=== PATIENT | male | born 1975 | race Caucasian/White ===

== ENCOUNTER 2021-04-07 13:17 | Outpatient (RCR) | payer OTHER, SELFPAY | END 2021-05-28 08:00 | disposition home or self-care (01) | LOC: HO.WCC 13:17 | PROVIDERS: PCP Student in an Organized Health Care Education/Training Program; Visit Provider Physician Assistant | DX: L97.212 Non-pressure chronic ulcer of right calf with fat layer exposed (principal); F17.210 Nicotine dependence, cigarettes, uncomplicated; F11.20 Opioid dependence, uncomplicated | CPT/HCPCS: 11042 ==

== ENCOUNTER 2024-09-07 10:00 | Outpatient (REF) | payer OTHER, SELFPAY ==
[2024-09-07 14:27] LABS: MANUAL DIFF FLAG NO
[2024-09-07 14:34] LABS: Basophils Percent Auto 0.4 % (0-2); Eosinophils Absolute Auto 0.1 X10*3/uL (0.0-0.4); Eosinophils Percent Auto 2.8 % (0-4); Hematocrit 44.7 % (42.0-52.0); Hemoglobin 15.2 g/dl (14.0-18.0); Imm Gran Abs Auto 0.01 X10*3/uL (0.00-0.03); Imm Gran Pct Auto 0.2 % (0.0-0.4); Lymphocytes Absolute Auto 1.6 X10*3/uL (1.2-4.9); Lymphocytes Percent Auto 31.1 % (20-40); Mean Corpuscular Hemoglobin 29.6 pg (27.0-33.0); Mean Corpuscular Volume 87.1 fL (80.0-98.0); Monocytes Absolute Auto 0.4 X10*3/uL (0.1-1.2); Neutrophils Absolute Auto 2.9 x10*3/uL (2.0-8.3); Neutrophils Percent Auto 57.5 % (45-73); Platelet Count 204 X10*3/uL (160-400); Red Blood Count 5.13 X10*6/uL (4.60-5.80); Red Cell Distribution Width 12.3 % (11.0-16.0)
[2024-09-07 15:04] LABS: Prostate Specific Antigen Scr 0.47 ng/mL (<0.05-4.0)
[2024-09-07 15:16] LABS: Alanine Aminotransferase 177 U/L (0-40); Albumin Level 4.2 g/dL (3.5-5.0); Alkaline Phosphatase 108 U/L (39-117); Anion Gap 12 (12-20); Aspartate Amino Transferase 130 U/L (5-37); Bilirubin Direct 0.2 mg/dL (0.0-0.5); Bilirubin Total 0.4 mg/dL (0.0-1.0); Blood Urea Nitrogen 15 mg/dL (9-16); Calcium 9.6 mg/dL (8.4-10.2); Carbon Dioxide 27 mmol/L (22-29); Chloride 104 mmol/L (96-108); Cholesterol 124 mg/dL (<200); Estimated Glomerular Filt Rate > 60; Glucose Fasting 85 mg/dL (60-99); HDL Cholesterol 32 mg/dL (>40); LDL Cholesterol Calculated 54 mg/dL (<100); Potassium 4.1 mmol/L (3.3-5.1); Sodium 139 mmol/L (135-145); Total Protein 8.2 g/dL (6.5-8.0); Triglycerides 193 mg/dL (<150)
[2024-09-07 15:17] LABS: TSH reflex Free T4 3.11 uIU/mL (0.32-4.0)
[2024-09-07 16:09] LABS: CT PCR NOT DETECTED (Not Detect.); NG PCR NOT DETECTED (Not Detect.)
[2024-09-08 08:32] LABS: HBS Num1 11.36 mIU/mL (0-7.99); ~HepC Num1 16.61 S/CO (0.00-0.79); ~Hepatitis C Antibody Reactive (Nonreactive)
[2024-09-08 10:56] LABS: HBS Num2 11.19 mIU/mL (0-7.99); HBS Num3 11.09 mIU/mL (0-7.99); ~Hepatitis B Surface Antibody GRAYZONE (Nonreactive)
[2024-09-09 13:13] LABS: HCV Log PCR 6.17 Log IU/mL (NOT DETECTED); HepC Viral Load 1480000 IU/mL (NOT DETECTED)
== END 2024-09-07 10:01 | disposition home or self-care (01) ==
LOC: HO.CHCLDS 10:00
PROVIDERS: Visit Provider Pediatrics
DX: Z11.3 Encounter for screening for infections with a predominantly sexual mode of transmission (principal); E66.3 Overweight; M54.2 Cervicalgia; G89.29 Other chronic pain; Z12.5 Encounter for screening for malignant neoplasm of prostate
CPT/HCPCS: 36415; 80048; 80061; 80076; 84153; 84443; 85025; 86706; 86803; 87491; 87522; 87591

== ENCOUNTER → 2024-12-15 11:29 | Outpatient (BNV) | payer OTHER, SELFPAY | PROVIDERS: PCP Student in an Organized Health Care Education/Training Program; Visit Provider Radiology Diagnostic Radiology | DX: K76.0 Fatty (change of) liver, not elsewhere classified (principal); R16.0 Hepatomegaly, not elsewhere classified; K83.8 Other specified diseases of biliary tract | CPT/HCPCS: 76700 ==

== ENCOUNTER 2025-01-09 11:06 | Outpatient (REF) | payer OTHER, SELFPAY ==
--- OUTSIDE RECORDS SUMMARY | 2025-01-09 13:31 | XMS_ITS | Encounter Summary ---
Author Organization [employer] Address [address] [place] [address] Care Team Providers Care Banquet Pilot Name Role Phone Maribel Lomax MD Primary Care Provider [phone] Encounter Details Date Type Department Care Team (Late st Contact Info) Description 12/15/2024 Orders Only [facility] CH[facility] MED & PEDS [address] [place], [place] [phone] Maribel Lomax MD [address] [place] [address] Social History Tobacco Use Types Packs/Day Years Used Date Smoking Tobacco: Every Day Cigarettes 0.3 35.2 Started: 11/15/1989 Passive Smoke Exposure: Current Smokeless Tobacco: Never Alcohol Answer Date Recorded Frequency of Alcohol Consumption Not on file 09/07/2024 Average Number of Drinks Not on file 024 Frequency of Binge Drinking Not on file 08/16 Score 0 09/07/2024 Depression Answer Date Recorded Patient Health Questionnaire-9 Score 0 09/07/2024 Patient Health Questionnaire-9 Score 0 09/07/2024 Last PHQ-9: Questionnaire Data Not on file 1 Housing Stability Answer Date Recorded What is your housing situation today? I have maurice craig 09/07/[address] you li ve. Do you have problems with any of the following? None of the above 09/07/2024 Food Insecurity Answer Date Recorded Within the past 12 months, y ou worried that your food would run out before you got money to buy more: Never True 09/07/2024 Within the past 12 months,th e food you bought just didn't last and you didn't have enough money to get more: Never True Transportation Answer Date Recorded In the past 12 months, has l ack of transportation kept you from medical appts, meetings, work or from getting things needed for daily living? No 09/07/2024 Utilities Answer Date Recorded In the past 12 months, has t he electric, gas, oil or water company threatened to shut off services in your home? No 09/07/2024 Depression Answer Date Recorded Patient Health Questionnaire-2 Score 0 09/07/2024 Internet Access Answer Date Recorded Internet Access Q1 Yes 09/07/2024 Internet Access Q2 Not on file 09/07/2024 Sex and Gender Information Value Date Recorded Sex Assigned at Male 09/14/2022 10:18 AM EDT Legal Sex Male 10:18 AM EDT Gender Identity Male 09/14/2022 10:18 AM EDT Sexual Orientation Straight 09/14/2022 10 :18 AM EDT documented as of this encounter Plan of Treatment Not on file documented as of this encounter Procedures Procedure Name Priority Date/Time Associated Diagnosis Comments US ABDOMEN COMPLETE WITH ELASTOGRAPHY Routine 12/15/2024 11:55 AM EST documented in this encounter Results * US Abdomen Comp w elastography (12/15/2024 11:55 AM EST) Anatomical Region Laterality Modality Abdomen Ultrasound 12/15/2024 11:5 5 AM EST Narrative 12/15/2024 2:16 PM EST ? [facility] ?[address] ?[place] [address] ? Ultrasound Report ? Signed ? Patient: Kimberlee,Antoni ?MR#: [id number] ?? [id number] ? : 1975 ?Acct:[id number] ? Age/Sex: 49 / M ?ADM Date: /31/25 ? Loc: HO.US ? Attending Dr: Maribel Lomax MD ? Ordering Physician: Maribel Lomax MD ?? Date of Service: 12/15/24 ?? Procedure(s): US abdomen comp w elastography ?? Accession Number(s): [id number] ? cc: Maribel Lomax MD ? EXAMINATION: ??US ABDOMEN COMPLETE WITH LIVER ELASTOGRAPHY ? HISTORY: Hep C Fib 4 index 3.36 ? TECHNIQUE: Real-time grayscale ultrasound imaging of the abdomen was ?? performed and images were reviewed. ? COMPARISON: There are no prior studies for comparison. ? FINDINGS: ?? Liver: ??The liver is enlarged and demonstrates diffusely increased ?? echotexture, consistent with steatosis. ??No focal mass or intrahepatic ?? biliary ductal dilatation is identified. ??There is normal hepatopedal ?? flow in the portal vein. ? Ultrasound elastography of the liver was performed with 10 separate ?? measurements of the liver parenchyma with the patient in the supine ?? position. ??Measurements were obtained approximately 2 cm below ?? Dominique's capsule and perpendicular to the capsule. ??Images are of ?? satisfactory quality. ? The median shear wave velocity is 1.08 m/s. ?? The interquartile range/median (IQR/median) is 0.05. ? Gallbladder and biliary tree: The gallbladder is unremarkable, without ?? evidence of calculi, wall thickening, or pericholecystic fluid. ??There ?? is no sonographic Arnold sign. ??The common bile duct is dilated, ?? measuring 13 mm in diameter. ? Kidneys: ??The right kidney measures 10.5 cm in length. The left kidney ?? measures 10.1 cm in length. ??The kidneys are unremarkable, without ?? evidence of masses, hydronephrosis, or calculi. ? Pancreas: The pancreas is obscured by bowel gas. ? Spleen: The spleen is normal in size and contour, measuring 12.2 cm in ?? length. ? Abdominal aorta and inferior vena cava: The visualized portions of the ?? abdominal aorta and inferior vena cava are normal in caliber. ? There is no free fluid in the abdomen. ? US/US abdomen comp w elastography ?? IMPRESSION: ? 1. Hepatomegaly and hepatic steatosis. ? 2. Dilated common bile duct without evidence of intrahepatic biliary ?? ductal dilatation or choledocholithiasis. If there is clinical concern ?? for choledocholithiasis, MRCP could be performed. ? The median shear wave velocity is 1.08 m/s, corresponding to a median ?? liver stiffness of 3.49 kPa. ??The IQR/median value is 0.05. ??This is ?? indicative of a quality data set. ?? Findings are indicative of a normal elastography value with a low ?? likelihood of severe fibrosis or cirrhosis. ? REFERENCE: ?? Society of Radiologists in Ultrasound Liver Stiffness Thresholds (2019): ? LIVER STIFFNESS THRESHOLDS: ?? *Shear wave velocity less than 1.3 m/s (Liver Stiffness equal or less ?? than 5 kPa): ??High probability of being normal. ?? *Shear wave velocity less than 1.7 m/s (Liver Stiffness less than 9 ?? kPa): ??In the absence of other known clinical signs, rules out ?? compensated advanced chronic liver disease. ?? *Shear wave velocity between 1.7-2.1 m/s (Liver Stiffness 9-13 kPa): ? Suggestive of compensated advanced chronic liver disease but need ?? further test for confirmation. ?? *Shear wave velocity between 2.1-2.4 m/s (Liver Stiffness 13-17 kPa): ? Rules in compensated advanced chronic liver disease. ?? *Shear wave velocity ??greater than 2.4 m/s (Liver Stiffness over 17 ?? kPa): ??Suggestive of clinically significant portal hypertension. ? QUALITY OF DATA SET: ?? *IQR/Median value equal or less than 0.15 implies a quality data set. ?? *IQR/Median value over 0.15 implies a poor quality data set. ? SIGNIFICANT CHANGE FROM PRIOR EXAM: ?? Significant change if liver stiffness measurement is 10% or greater ?? from prior exam. ? OTHER CONSIDERATIONS: ?? The stage of liver fibrosis may be overestimated in the setting of ?? acute hepatitis, liver inflammation, elevated liver function tests, ?? hepatic vascular congestion, obstructive cholestasis, non-fasting ?? state, and infiltrative diseases such as amyloidosis and lymphoma. ??In ?? some patients with NAFLD, the liver stiffness thresholds for ?? compensated advanced chronic liver disease may be lower. ??In causes ?? other than viral hepatitis and NAFLD, liver stiffness thresholds are ?? not well established. ? Electronically signed by: ??Singh Tomlin MD ??12/15/2024 02:13 PM EST ?? RP ? Dictated By: ?Singh Tomlin MD ? Signed By: ?<Electronically signed by Singh Tomlin MD in OV> ?12/15/24 1413 ? DD/ 1155 ? TD/TT: 12/15/24 1222 ? Personnel Analyst: ? Procedure Note Donotuseinterpreter, Image - 12/15/2024 [place] [id number] Ultrasound Report Signed Patient: Mark Mohan#: [id number] 727 : 1975Acct:[id number] Age/Sex: 49 / MADM Date: 12/15/24 Loc: HO.US Attending Dr: Maribel Lomax MD Ordering Physician: Maribel Lomax MD Date of Service: 12/15/24 Procedure(s): US abdomen comp w elastography Accession Number(s): [id number] cc: Maribel Lomax MD EXAMINATION: US ABDOMEN COMPLETE WITH LIVER ELASTOGRAPHY HISTORY: Hep C Fib 4 index 3.36 TECHNIQUE: Real-time grayscale ultrasound imaging of the abdomen was performed and images were reviewed. COMPARISON: There are no prior studies for comparison. FINDINGS: Liver: The liver is enlarged and demonstrates diffusely increased echotexture, consistent with steatosis. No focal mass or intrahepatic biliary ductal dilatation is identified. There is normal hepatopedal flow in the portal vein. Ultrasound elastography of the liver was performed with 10 separate measurements of the liver parenchyma with the patient in the supine position. Measurements were obtained approximately 2 cm below Dominique's capsule and perpendicular to the capsule. Images are of satisfactory quality. The median shear wave velocity is 1.08 m/s. The interquartile range/median (IQR/median) is 0.05. Gallbladder and biliary tree: The gallbladder is unremarkable, without evidence of calculi, wall thickening, or pericholecystic fluid. There is no sonographic Arnold sign. The common bile duct is dilated, measuring 13 mm in diameter. Kidneys: The right kidney measures 10.5 cm in length. The left kidney measures 10.1 cm in length. The kidneys are unremarkable, without evidence of masses, hydronephrosis, or calculi. Pancreas: The pancreas is obscured by bowel gas. Spleen: The spleen is normal in size and contour, measuring 12.2 cm in length. Abdominal aorta and inferior vena cava: The visualized portions of the abdominal aorta and inferior vena cava are normal in caliber. There is no free fluid in the abdomen. US/US abdomen comp w elastography IMPRESSION: 1. Hepatomegaly and hepatic steatosis. 2. Dilated common bile duct without evidence of intrahepatic biliary ductal dilatation or choledocholithiasis. If there is clinical concern for choledocholithiasis, MRCP could be performed. The median shear wave velocity is 1.08 m/s, corresponding to a median liver stiffness of 3.49 kPa. The IQR/median value is 0.05. This is indicative of a quality data set. Findings are indicative of a normal elastography value with a low likelihood of severe fibrosis or cirrhosis. REFERENCE: Society of Radiologists in Ultrasound Liver Stiffness Thresholds (2019): LIVER STIFFNESS THRESHOLDS: *Shear wave velocity less than 1.3 m/s (Liver Stiffness equal or less than 5 kPa): High probability of being normal. *Shear wave velocity less than 1.7 m/s (Liver Stiffness less than 9 kPa): In the absence of other known clinical signs, rules out compensated advanced chronic liver disease. *Shear wave velocity between 1.7-2.1 m/s (Liver Stiffness 9-13 kPa): Suggestive of compensated advanced chronic liver disease but need further test for confirmation. *Shear wave velocity between 2.1-2.4 m/s (Liver Stiffness 13-17 kPa): Rules in compensated advanced chronic liver disease. *Shear wave velocity greater than 2.4 m/s (Liver Stiffness over 17 kPa): Suggestive of clinically significant portal hypertension. QUALITY OF DATA SET: *IQR/Median value equal or less than 0.15 implies a quality data set. *IQR/Median value over 0.15 implies a poor quality data set. SIGNIFICANT CHANGE FROM PRIOR EXAM: Significant change if liver stiffness measurement is 10% or greater from prior exam. OTHER CONSIDERATIONS: The stage of liver fibrosis may be overestimated in the setting of acute hepatitis, liver inflammation, elevated liver function tests, hepatic vascular congestion, obstructive cholestasis, non-fasting state, and infiltrative diseases such as amyloidosis and lymphoma. In some patients with NAFLD, the liver stiffness thresholds for compensated advanced chronic liver disease may be lower. In causes other than viral hepatitis and NAFLD, liver stiffness thresholds are not well established. Electronically signed by: Singh Tomlin MD 12/15/2024 02:13 PM EST RP Dictated By: Singh Tomlin MD Signed By: <Electronically signed by Singh Tomlin MD in OV> 12/15/24 1413 DD/ 1155 TD/TT: 12/15/24 1222 Personnel Analyst: us Maribel Lomax MD [facility] Final Result documented in this encounter Visit Diagnoses Not on filedocumented in this encounter Additional Health Concerns Assessment Noted Time PHQ-9 Depression Total Score: 0 09/07/20 9:32 AM EDT documented as of this encounter Care Teams Banquet Pilot Relationship Specialty Start Date End Date Maribel Lomax MD [address] [place] [id number] PCP - General Family Medicine 08/22/13 documented as of this encounter
--- OUTSIDE RECORDS SUMMARY | 2025-01-09 13:31 | XMS_ITS | Encounter Summary ---
Author Organization [email or web address] Address [address] [facility] 7t [place] [address] Care Team Providers Care Clinical Project Coordinator Name Role Phone Maribel Lomax MD Primary Care Provider [phone] Reason for Visit * Reason Onset Date Comments Results 12/25/2024 Encounter Details Date Type Department Care Team ([facility] Contact Info) Description 12/25/2024 Telephone [facility] MEDICINE [address], [place] [phone] Lacey Stevens RN [address] [place] [address] Results Social History Tobacco Use Types Packs/Day Years [...] AM EDT documented as of this encounter Miscellaneous Notes * Telephone Encounter - Radha Prajapati MD - 01/04/2025 10:36 AM EST Okay to treat here. Needs bloodwork done. Thank you. * Telephone Encounter - Lacey Stevens RN - 12/25/2024 1:34 PM EST Please review Abd. US report and advise if pt should be tx for hep C via GI or here with you. Thankyou documented in this encounter Plan of Treatment Not on file documented as of this encounter Visit Diagnoses Not on filedocumented in this encounter Additional Health Concerns Assessment Noted Time PHQ-9 Depression Total Score: 0 09/07/20 9:32 AM EDT documented as of this encounter Care Teams Clinical Project Coordinator Relationship Specialty Start Date End Date Maribel Lomax MD [address] [place] [address] PCP - General Family Medicine 08/22/13 documented as of this encounter
--- OUTSIDE RECORDS SUMMARY | 2025-01-09 13:31 | XMS_ITS | Encounter Summary ---
Author Organization [employer] Address [address] [facility] 7[address] [place] [address] Care Team Providers Care Safety Representative Name Role Phone Maribel Lomax MD Primary Care Provider [phone] Encounter Details Date Type Department Care Team (Late st Contact Info) Description 01/04/2025 Telephone [facility] MEDICINE [address] [place], [place] [phone] Lacey Stevens, RN [address] [place] [address] Social History Tobacco Use Types Packs/Day Years [...] encounter Miscellaneous Notes * Telephone Encounter - Lacey Stevens RN - 01/04/2025 10:39 AM EST RN called pt to confirm Hep C tx here, pt agrees and will get labs done tomorrow. Once they are done he will come in person to be seen and start the HEP C TX process. Pt does c/o left side abdominal pain on palpation that has been there, will come in if pain worsens sooner than hep c tx. Pt denies any N/V/D, and is eating well. Once labs tom beltran RN will schedule appt with . documented in this encounter Plan of Treatment Not on file documented as of this encounter Visit Diagnoses Not on filedocumented in this encounter Additional Health Concerns Assessment Noted Time PHQ-9 Depression Total Score: 0 09/07/20 9:32 AM EDT documented as of this encounter Care Teams Safety Representative Relationship Specialty Start Date End Date Maribel Lomax MD [address] [place] [id number] PCP - General Family Medicine 08/22/13 documented as of this encounter
--- OUTSIDE RECORDS SUMMARY | 2025-01-09 13:31 | XMS_ITS | Clinical Summary ---
Author Organization [employer] Address [address] [facility] 7t [place] [address] Care Team Providers Care Estimator And Drafter Name Role Phone Maribel Lomax MD Primary Care Provider [phone] Allergies Active Allergy Reactions Criticality Noted Date Comments Aspirin Anaphylaxis High 12/21/2013 Codeine Rash Low 12/21/2013 Medications * This document contains information received from the source organization and may not represent a complete record from that organization. nicotine polacrilex (Nicotine Mini) 4 MG lozenge Dissolve 1 lozenge (4 mg) in the mouth every 2 (two) hours if needed for smoking cessation. 100 lozenge 4 Active gabapentin (Neurontin) 300 MG capsule TAKE 1 CAPSULE BY MOUTH AT BEDTIME 30 capsule 1 5 Active gabapentin (Neurontin) 300 MG capsule Take 1 capsule (300 mg) by mouth at bedtime. 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 Chronic neck pain 10/21/2015 Encounters Date Type Department Care Team Description 01/04/2025 Telephone [facility] MEDICINE [address] [place] [address] Lacey Stevens, RN 12/25/2024 Telephone [facility] [address] [place] [address] Lacey Stevens, RN Results 12/20/2024 Orders Only [facility] CHC MED & PEDS [address] [place], [place] [phone] Maribel Lomax MD Choledocholithiasis (Primary Dx) 12/19/2024 Telephone [facility] MED & PEDS [address] [place] [address] Kennedi Sheridan, RN Results 12/15/2024 Orders Only [facility] MED & PEDS [address] [place], [place] [phone] Maribel Lomax MD 12/09/2024 Refill [facility] CH[facility] MED & PEDS [address] [place], [place] [phone] Zhanna Valerio MD 11/24/2024 Telephone [facility] MED[facility] [address] [place] [phone] Cailin Stoner [place] Hep C Management 11/23/[address] [address] Lacey Stevens, party bus driver Results 11/21/[address] [address] Lacey Stevens, SOREN 11/20/[address] [address] Lacey Stevens, SOREN 11/02/[address] [address] Grecia Tejeda, SOREN Hep C Management 10/18/[address] [address] Jordana Washington, SOREN Error (VOID this visit) from Last 3 Months Immunizations Name Administration Dates Next Due Td (adult), 5 Lf tetanus tox oid, preservative free, adsorbed 05/19/2017 Tdap 12/02/2012 Social History Tobacco Use Types Packs/Day Years Used Date Smoking Tobacco: Every Day Cigarettes 0.3 35.2 Started: 11/15/1989 Passive Smoke Exposure: Current Smokeless Tobacco: Never Tobacco Cessation:Ready to Q uit: Not Asked; Counseling Given: Not Answered Alcohol Answer Date Recorded Frequency of Alcohol [...] Orientation Straight 09/14/2022 10 :18 AM EDT Last Filed Vital Signs Vital Sign Reading Time Taken Comments Blood Pressure 135/81 09/07/2024 9:29 AM EDT Pulse 64 09/07/2024 9:29 AM EDT Temperature 36.2 ??C (97.2 ??F) 09/07/2024 9:29 AM ED T Respiratory Rate 20 09/07/2024 9:29 AM EDT Oxygen Saturation 95% 09/07/2024 9:29 AM EDT Inhaled Oxygen Concentration - - Weight 88.9 kg (196 lb) 09/07/2024 9:29 AM EDT Height 169.5 cm (5' 6.75 ) 09/07/2024 9:29 AM ED T Body Mass Index 30.93 09/07/2024 9:29 AM EDT Plan of Treatment Health Maintenance Due Date Last Done Comments CT Colonography 1975 Colonoscopy 1975 Colorectal Cancer Screening 1975 FIT DNA/Cologuard 1975 FIT 1975 FOBT 1975 HIV Screening 1975 Sigmoidoscopy 1975 Family Planning (PISQ) 1988 Hepatitis A Vaccines (1 of 2 - Risk 2-dose series) 1992 Hepatitis B Vaccines (1 of 3 - 19+ 3-dose series) 1992 Pneumococcal Vaccine: 50+ Years (1 of 2 - PCV) 1992 Zoster Vaccines (1 of 2) 2023 COVID-19 Vaccine (2023-2 5 season) 2024 Influenza Vaccine (#1) 2024 Alcohol/Substance Use Screening 09/07/2025 09/07/2024 Depression Screening 09/07/2025 09/07/2024, 09/07/2024 SDOH Screening 09/07/2025 09/07/2024 Tobacco Screening 09/07/2025 09/07/2024 DTaP/Tdap/Td Vaccines (3 - T d or Tdap) 05/19/2027 05/19/2017, 12/02/2012 Lipid Panel 09/07/2029 09/07/2024 RSV Patients and Patients Aged 60 years or older (1 - 1-dose 75+ series) 2048 HIB Vaccines Aged Out No longer eligi ble based on patient's age to complete this topic HPV Vaccines Aged Out No longer eligi ble based on patient's age to complete this topic IPV Vaccines Aged Out No longer eligi ble based on patient's age to complete this topic Meningococcal Vaccine Aged Out No nas beth eligible based on patient's age to complete this topic RSV under 20 months Aged Out No longe r eligible based on patient's age to complete this topic Rotavirus Vaccines Aged Out No longer eligible based on patient's age to complete this topic Procedures Procedure Name Priority Date/Time Associated Diagnosis Comments US ABDOMEN COMPLETE WITH ELASTOGRAPHY Routine 12/15/2024 11:55 AM EST LIPID PANEL, STANDARD Routine 09/07/2024 10:02 AM EDT Routine screening for STI (sexually transmitted infection) Overweight Chronic neck pain from Last 3 Months or Most Recently Relevant to Health Maintenance Results * US Abdomen Comp w elastography (12/15/2024 11:55 AM EST) Anatomical Region Laterality Modality Abdomen Ultrasound 12/15/2024 11:5 5 AM EST Narrative 12/15/2024 2:16 PM EST ? [facility] ?[address] ?[place] [address] ? Ultrasound Report ? Signed ? Patient: Kimberlee,Antoni ?MR#: [id number] ?? [id number] ? : 1975 ?Acct:[id number] ? Age/Sex: 49 / M ?ADM Date: 12/15/24 ? Loc: HO.US ? Attending Dr: Maribel Lomax MD ? Ordering Physician: Maribel Lomax MD ?? Date of Service: 12/15/24 ?? Procedure(s): US abdomen comp w elastography ?? Accession Number(s): [id number] ? cc: Maribel Lomax MD ? EXAMINATION: [...] DD/ 1155 ? TD/TT: 12/15/24 1222 ? Thread Machine Operator: ? Procedure Note [place], Image - 12/15/[address] [address] Ultrasound Report Signed Patient: Mark Mohan#: [id number] 727 : 1975Acct:[id number] Age/Sex: 49 / MADM Date: 12/15/24 Loc: HO.US Attending Dr: Maribel Lomax MD Ordering Physician: Maribel Lomax MD Date of Service: 12/15/24 Procedure(s): US abdomen comp w elastography Accession Number(s): [id number] cc: Maribel Lomax MD EXAMINATION: US ABDOMEN [...] of Radiologists in Ultrasound Liver Stiffness Thresholds (2020): LIVER STIFFNESS THRESHOLDS: *Shear wave velocity less [...] by: Singh Tomlin MD 12/15/2024 02:13 PM [facility] [place] Dictated By: Singh Tomlin MD Signed By: <Electronically signed by Singh Tomlin MD in OV> 12/15/24 1413 DD/ 1155 TD/TT: 12/15/24 1222 Thread Machine Operator: us Maribel Lomax MD [facility] [place] Final Result * (ABNORMAL) Lipid Panel, Standard (09/07/2024 10:02 AM EDT) Triglycerides 193(H) <150 mg/dL [facility] Comment:Desirable Triglyceri de: less than 150 mg/dLBorderline High Triglyceride 150-199 mg/dLHigh Triglyceride: 200-499 mg/dLVery High Triglyceride: greater than or equal to 5OO mg/dL Cholesterol 124 <200 mg/dL [facility] Comment:Desirable Cholestero l: less than 200 mg/dLBorderline High Cholesterol: 200-239 mg/dLHigh Cholesterol: greater than 239 mg/dL LDL Cholesterol Calculated 54 <100 mg/dL [facility] Comment:Desirable LDL: less than 100 mg/dLNear Optimal/Above Optimal LDL: 110- 129 mg/dLBorderline High LDL: 130-159 mg/dLHigh LDL: 160-189 mg/dLVery High LDL: greater than or equal to 190 mg/dL HDL Cholesterol 32(L) >40 mg/dL [facility] Comment:Desirable HDL: great er than 40 mg/dL Note: This HDL assay may give artificially low results in patients with liver disease. Blood Venous blood specimen / Unknown 09/07/2024 10:02 AM EDT 09/07/2024 2:21 PM EDT us Zhanna Valerio MD LAB BLOOD ORDERABLES Final Re sult [facility] [address] [place] [address] [phone] from Last 3 Months or Most Recently Relevant to Health Maintenance [place] [address] [place] [address] [address] [employer] Care Teams Estimator And Drafter Relationship Specialty Start Date End Date Maribel Lomax MD [address] [place] [phone] PCP - General Family Medicine 08/22/13
--- OUTSIDE RECORDS SUMMARY | 2025-01-09 13:31 | XMS_ITS | Encounter Summary ---
Author Organization [employer] Address [address] [facility] 7t [place] [address] Care Team Providers Care Electrical Technician Instructor Name Role Phone Maribel Lomax MD Primary Care Provider [phone] Reason for Visit * Reason Comments Med Refill Encounter Details Date Type Department Care Team ([facility] Contact Info) Description 12/09/2024 Refill [facility] MED & PEDS [address] [place], [place] [phone] Zhanna Valerio MD [address] [place] [address] Social History Tobacco Use Types Packs/Day Years [...] documented as of this encounter Care Teams Electrical Technician Instructor Relationship Specialty Start Date End Date Maribel Lomax MD [address] [place] [phone] PCP - General Family Medicine 08/22/13 documented as of this encounter
--- OUTSIDE RECORDS SUMMARY | 2025-01-09 13:31 | XMS_ITS | Encounter Summary ---
Author Organization [employer] Address [address] [facility] [address] 7[address] [place] [address] Care Team Providers Care Mat Inspector Name Role Phone Maribel Lomax MD Primary Care Provider [phone] Reason for Visit * Reason Onset Date Comments Results 12/19/2024 Encounter Details Date Type Department Care Team ([facility] Contact Info) Description 12/19/2024 Telephone C [facility] MED [facility] PEDS [address] [place] [address] Kennedi Sheridan RN Results Social History Tobacco Use Types Packs/Day [...] encounter Miscellaneous Notes * Telephone Encounter - Kennedi Sheridan RN - 12/19/2024 9:53 AM EST TC placed to pt to inform and advise of results from US Abdomen Comp w elastography. Pt told of therecommendation for a MRCP for further testing and evaluation and the GI consult placed by Dr. Lomax. Pt agreeable to this information and stated understanding. ----- Message from Maribel Lomax MD sent at 12/16/2024 7:24 PM EST ----- Will order GI consult STAT Pt needs MRCP documented in this encounter Plan of Treatment Not on file documented as of this encounter Visit Diagnoses Not on filedocumented in this encounter Additional Health Concerns Assessment Noted Time PHQ-9 Depression Total Score: 0 09/07/20 9:32 AM EDT documented as of this encounter Care Teams Mat Inspector Relationship Specialty Start Date End Date Maribel Lomax MD [address] [place] [phone] PCP - General Family Medicine 08/22/13 documented as of this encounter
--- OUTSIDE RECORDS SUMMARY | 2025-01-09 13:31 | XMS_ITS | Encounter Summary ---
Author Organization [employer] Address [address] [facility] 7t [place] [address] Care Team Providers Care Medical Affairs Manager Name Role Phone Maribel Lomax MD Primary Care Provider [phone] Reason for Referral * Consultation (STAT) - Authorized Specialty Diagnoses / Procedures Referred By Amrit t Referred To Contact Gastroenterology Diagnoses Choledocholithiasis Maribel Lomax MD [address] [place] [address] Phone: tel: fax: [facility] [address] [facility] 3rd [address] [place], [place] Phone: tel: fax: Referral ID Status Reason Start Date Expiration Date Visits Requested Visits Authorized [id number] Authorized Specialty Services Required 12/20/2024 12/20/2025 1 1 Encounter Details Date Type Department Care Team (Latest Contact Info) Description 12/20/2024 Orders Only [facility] CHC MED & PEDS [address] [place] [address] Maribel Lomax MD [address] [place] [address] Choledocholithiasis (Primary Dx) Social History Tobacco Use Types Packs/Day Years [...] as of this encounter Plan of Treatment Scheduled Referrals Name Type Priority Associated Diagnoses Order Schedule Referral to Gastroenterology Outpatient Referral STAT Choledocholithiasi s Expected: 12/20/2024 (Approximate), Expires: 12/20/2025 documented as of this encounter Visit Diagnoses Diagnosis Choledocholithiasis- Primary Calculus of bile duct without mention of cholecystitis or obstruction documented in this encounter Additional Health Concerns Assessment Noted Time PHQ-9 Depression Total Score: 0 09/07/20 9:32 AM EDT documented as of this encounter Care Teams Medical Affairs Manager Relationship Specialty Start Date End Date Maribel Lomax MD [address] [place] [address] PCP - General Family Medicine 08/22/13 documented as of this encounter
[2025-01-09 14:21] LABS: MANUAL DIFF FLAG NO
[2025-01-09 14:29] LABS: Basophils Percent Auto 0.4 % (0-2); Eosinophils Absolute Auto 0.2 X10*3/uL (0.0-0.4); Eosinophils Percent Auto 3.1 % (0-4); Hematocrit 40.2 % (42.0-52.0); Hemoglobin 13.8 g/dl (14.0-18.0); Imm Gran Abs Auto 0.01 X10*3/uL (0.00-0.03); Imm Gran Pct Auto 0.2 % (0.0-0.4); Lymphocytes Absolute Auto 1.6 X10*3/uL (1.2-4.9); Mean Corpuscular HGB Conc 34.3 g/dl (31.0-36.0); Mean Corpuscular Hemoglobin 29.7 pg (27.0-33.0); Mean Corpuscular Volume 86.5 fL (80.0-98.0); Mean Platelet Volume 10.4 fL (9.4-12.4); Monocytes Absolute Auto 0.4 X10*3/uL (0.1-1.2); Monocytes Percent Auto 7.5 % (2-11); Neutrophils Absolute Auto 2.6 x10*3/uL (2.0-8.3); Neutrophils Percent Auto 54.8 % (45-73); Platelet Count 198 X10*3/uL (160-400); Red Blood Count 4.65 X10*6/uL (4.60-5.80); Red Cell Distribution Width 12.1 % (11.0-16.0); White Blood Count 4.8 X10*3/uL (4.8-10.8)
[2025-01-09 14:30] LABS: INTERNATIONAL NORM RATIO 0.9 (0.9-1.1); Prothrombin Time 10.4 SEC (10.9-12.4)
[2025-01-09 14:35] LABS: Estimated Glomerular Filt Rate > 60
[2025-01-10 08:49] LABS: HBS Num1 15.49 mIU/mL (0-7.99); HBc Num1 0.15 S/CO (0.00-0.79); HBsAGNum1 0.38 S/CO (0.00-0.99); HIV AB/AG Nonreactive (Nonreactive); HIV Num 1 0.05 S/CO (0.00-0.99); Hepatitis B Core Antibody Nonreactive (Nonreactive); Hepatitis B Surface Antigen Negative (Negative); ~Hepatitis B Surface Antibody REACTIVE (Nonreactive)
[2025-01-10 09:05] LABS: Hepatitis A Antibody IgG Nonreactive (Nonreactive); ~Hepatitis A Antibody IgG 0.67 S/CO (0.00-0.99)
[2025-01-13 17:33] LABS: Hepatitis C Genotype 1a
== END 2025-01-09 11:07 | disposition home or self-care (01) ==
LOC: HO.CHCLDS 11:06
PROVIDERS: Visit Provider Student in an Organized Health Care Education/Training Program
DX: B18.2 Chronic viral hepatitis C (principal); Z11.59 Encounter for screening for other viral diseases; Z72.89 Other problems related to lifestyle
CPT/HCPCS: 36415; 82565; 85025; 85610; 86704; 86706; 86708; 87340; 87389; 87902

== ENCOUNTER 2025-02-19 12:34 | Outpatient (REF) | payer OTHER, SELFPAY ==
--- OUTSIDE RECORDS SUMMARY | 2025-02-19 14:51 | XMS_ITS | Clinical Summary ---
Author Organization [employer] Address [address] [facility] 7t [place] [address] Care Team Providers Care Customer Marketing Manager Name Role Phone Maribel Lomax MD Primary Care Provider [phone] Allergies Active Allergy Reactions Criticality Noted Date Comments Aspirin Anaphylaxis High 12/21/2013 Codeine Rash Low 12/21/2013 Medications * This document contains information received from the source organization and may not represent a complete record from that organization. gabapentin (Neurontin) 300 MG capsule TAKE 1 CAPSULE BY MOUTH AT BEDTIME 30 capsule 1 12/13/19 25 Active albuterol 108 (90 Base) MCG/ACT inhaler Inhale 2 puffs every 4 (four) hours if needed. 08/08/20 24 Active methadone (Dolophine) 10 MG/5ML solution Take 35 mg by mouth Once per day. 08/17/20 22 Active sofosbuvir-walt patasvir (Epclusa) 400-100 MG tablet Take 1 tablet by mouth Once per day. 28 tablet 2 01/23/20 25 025 Active nicotine polacrilex (Nicotine Mini) 4 MG lozenge Dissolve 1 lozenge (4 mg) in the mouth every 2 (two) hours if needed for smoking cessation. 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 Chronic neck pain 10/21/2015 Encounters Date Type Department Care Team Description 02/13/2025 Telephone [facility] [address] [place] [address] Maribel Lomax MD Referral 02/05/2025 Orders Only [facility] [address] [place] [phone] Lacey Stevens, SOREN Hep C w/o coma, chronic (CMS/HCC) 01/29/[address] [address] Lacey Stevens, SOREN 01/22/2025 3:30 PM EDT Office Visit [address] [address] Radha Prajapati MD Chronic hepatitis C without hepatic coma (CMS/HCC) (Primary Dx); Encounter for immunization 01/22/2025 Travel 01/18/2025 1:00 PM EST Telemedicine [address] [address] Lacey Stevens, SOREN Hep C w/o coma, chronic (CMS/HCC) [B18.2] 01/18/[address] [address] Lacey Stevens RN 01/18/2025 Travel 01/17/[address] [address] Lacey Stevens, SOREN 01/09/2025 Orders Only [facility] MED & PEDS [address] [place] [address] Maribel Lomax MD 01/04/[address] [address] Lacey Stevens, SOREN 12/25/[address] [address] Lacey Stevens, SOREN Results 12/20/2024 Orders Only [facility] MED & PEDS [address] [place] [address] Maribel Lomax MD Choledocholithiasis (Primary Dx) 12/19/2024 Telephone [facility] MED & PEDS [address] [place] [address] Kennedi Sheridan, SOREN Results 12/15/2024 Orders Only [facility] CH[facility] MED & PEDS [address] [place] [address] Maribel Lomax MD 12/09/2024 Refill [facility] MED & PEDS [address] [facility] [place], [place] [phone] Zhanna Valerio MD 11/24/2024 Telephone [facility] [address] [place], [place] [phone] Cailin Stoner [place] Hep C Management 11/23/2024 Telephone [facility] [address] [place], [place] [phone] Lacey Stevens, geothermal powerplant supervisor Results 11/21/2024 Telephone [facility] [address] [place], [place] [phone] Lacey Stevens, SOREN from Last 3 Months Immunizations Name Administration Dates Next Due Hep A, Adult 01/22/2025 Td (adult), 5 Lf tetanus tox oid, preservative free, adsorbed 05/19/2017 Tdap 12/02/2012 Social History Tobacco Use Types Packs/Day Years Used Date Smoking Tobacco: Former Cigarettes 0.3 35.3 S tarted: 11/15/1989 Passive Smoke Exposure: Current Smokeless Tobacco: Never Tobacco Cessation:Counseling Given: Not Answered Depression Answer Date Recorded Patient Health Questionnaire-9 Score 0 09/07/2024 Patient Health Questionnaire-9 Score 0 09/07/2024 Last PHQ-9: Questionnaire Data Not on file 1 Housing Stability Answer Date Recorded What is your housing situation today? I have mauriceroberto craig 09/07/[address] you [...] Sign Reading Time Taken Comments Blood Pressure 145/91 01/22/2025 3:35 PM EDT Pulse 70 01/22/2025 3:35 PM EDT Temperature 36.3 ??C (97.3 ??F) 01/22/2025 3:35 PM ED T Respiratory Rate 22 01/22/2025 3:35 PM EDT Oxygen Saturation 95% 09/07/2024 9:29 AM EDT Inhaled Oxygen Concentration - - Weight 97.1 kg (214 lb) 01/22/2025 3:35 PM EDT Height 169.5 cm (5' 6.75 ) 09/07/2024 9:29 AM ED T Body Mass Index 33.77 09/07/2024 9:29 AM EDT Plan of Treatment Health Maintenance Due Date Last Done Comments CT Colonography 1975 Colonoscopy 1973 Colorectal Cancer Screening 1975 FIT DNA/Cologuard 1973 FIT 1975 FOBT 1975 Sigmoidoscopy 1973 Family Planning (PISQ) 1988 Hepatitis B Vaccines (1 of 3 - 19+ 3-dose series) 1992 Pneumococcal Vaccine: 50+ Years (1 of 2 - PCV) 1992 Zoster Vaccines (1 of 2) 2023 COVID-19 Vaccine (1 - 2023-2 5 season) 2024 Influenza Vaccine (#1) 2024 Hepatitis A Vaccines (2 of 2 - Risk 2-dose series) 07/25/2025 01/22/2025 Alcohol/Substance Use Screening 09/07/2025 09/07/2024 Depression Screening 09/07/2025 09/07/2024, 09/07/2024 SDOH Screening 09/07/2025 09/07/2024 Tobacco Screening 01/22/2026 01/22/2025 DTaP/Tdap/Td Vaccines (3 - T d or Tdap) 05/19/2027 05/19/2017, 12/02/2012 Lipid Panel 09/07/2029 09/07/2024 RSV Patients and Patients Aged 60 years or older (1 - 1-dose 75+ series) 2048 HIV Screening Completed 01/09/2025 HIB Vaccines Aged Out No longer eligi [...] Procedure Name Priority Date/Time Associated Diagnosis Comments HEPATITIS C VIRAL RNA GENOTYPE, LIPA Routine 01/09/2025 11:07 AM EST HEPATITIS A ANTIBODY, TOTAL Routine 01/09/2025 11:07 AM EST HEPATITIS B SURFACE ANTIGEN, EIA Routine 01/09/2025 11:07 AM EST HIV 1/2 ANTIGEN/ANTIBODY, FOURTH GENERATION W/RFL Routine 01/09/2025 11:07 AM EST HEPATITIS B CORE AB TOTAL Routine 01/09/2025 11:07 AM EST HEPATITIS B SURFACE ANTIBODY, QUALITATIVE Routine 01/09/2025 11:07 AM EST CREATININE, SERUM Routine 01/09/2025 11: 07 AM EST PROTHROMBIN TIME-INR Routine 01/09/2025 11:07 AM EST CBC WITH AUTO DIFFERENTIAL Routine 01/09/2025 11:07 AM EST US ABDOMEN COMPLETE WITH ELASTOGRAPHY Routine 12/15/2024 11:55 AM EST LIPID PANEL, STANDARD Routine 09/07/2024 10:02 AM EDT Routine screening for STI (sexually transmitted infection) Overweight Chronic neck pain from Last 3 Months or Most Recently Relevant to Health Maintenance Results * Creatinine, Serum (01/09/2025 11:07 AM EST) Creatinine, Serum 0.96 0.5 - 1.4 mg/dL [facility] Estimated Glomerular Filt Rate >60 [facility] Comment:Chronic Kidney Disea se: Estimated GFR < 60 mL/min/[id number] Kidney Disease: Estimated GFR < 15 mL/min/1.73m2 01/09/2025 11:0 7 AM EST 01/09/2025 2:15 PM EST us Maribel Lomax MD LAB BLOOD ORDERABLES Final Resul t [facility] [address] [place] [phone] * (ABNORMAL) CBC auto differential (01/09/2025 11:07 AM EST) White Blood Count 4.8 4.8 - 10.8 X10*3/uL [facility] Red Blood Count 4.65 4.60 - 5.80 X10*6/uL [facility] Hemoglobin 13.8(L) 14.0 - 18.0 g/dl [facility] Hematocrit 40.2(L) 42.0 - 52.0 % [facility] Mean Corpuscular Volume 86.5 80.0 - 98.0 fL [facility] Mean Corpuscular Hemoglobin 29.7 27.0 - 33.0 pg [facility] Mean Corpuscular HGB Conc 34.3 31.0 - 36.0 g/dl [facility] Red Cell Distribution Width 12.1 11.0 - 16.0 % [facility] Platelet Count 198 160 - 400 X10*3/uL [facility] Mean Platelet Volume 10.4 9.4 - 12.4 fL [facility] Neutrophils Percent Auto 54.8 45 - 73 % [facility] Imm Gran Pct Auto 0.2 0.0 - 0.4 % [facility] Lymphocytes Percent Auto 34.0 20 - 40 % [facility] Monocytes Percent Auto 7.5 2 - 11 % [facility] Eosinophils Percent Auto 3.1 0 - 4 % [facility] Basophils Percent Auto 0.4 0 - 2 % [facility] NRBC Pct Auto 0.0 0.0 - 0.2 /100WBC [facility] Neutrophils Absolute Auto 2.6 2.0 - 8.3 x10*3/uL [facility] Imm Gran Abs Auto 0.01 0.00 - 0.03 X10*3/uL [facility] Lymphocytes Absolute Auto 1.6 1.2 - 4.9 X10*3/uL [facility] Monocytes Absolute Auto 0.4 0.1 - 1.2 X10*3/uL [facility] Eosinophils Absolute Auto 0.2 0.0 - 0.4 X10*3/uL [facility] Basophils Absolute Auto 0.0 0.0 - 0.2 X10*3/uL [facility] NRBC Abs Auto 0.000 0.0 - 0.012 X10*3/uL [facility] 01/09/2025 11:0 7 AM EST 01/09/2025 2:15 PM EST us Maribel Lomax MD LAB BLOOD ORDERABLES Final Resul t [facility] [address] [place] [phone] [phone] * Hepatitis A Antibody, Total (01/09/2025 11:07 AM EST) Hepatitis A Antibody IgG Nonreactive Nonreactive [facility] 01/09/2025 11:0 7 AM EST 01/09/2025 2:15 PM EST Maribel Lomax MD LAB BLOOD ORDERABLES Final Resul t Performing Organization Address [facility] Number [facility] [address] [place] [phone] * Hepatitis B surface antigen, EIA (01/09/2025 11:07 AM EST) Hepatitis B Surface Ag Negative Negative [facility] 01/09/2025 11:0 7 AM EST 01/09/2025 2:15 PM EST Maribel Lomax MD LAB BLOOD ORDERABLES Final Resul t Performing Organization Address [facility] Number [facility] [address] [place] [phone] * Hepatitis B Core Antibody, Total (01/09/2025 11:07 AM EST) Hepatitis B Core Antibody Nonreactive Nonreactive [facility] 01/09/2025 11:0 7 AM EST 01/09/2025 2:15 PM EST Maribel Lomax MD LAB BLOOD ORDERABLES Final Resul t Performing Organization Address [facility] [address] [place] [phone] * Hepatitis C Viral RNA, Genotype, LiPA (01/09/2025 11:07 AM EST) Hepatitis C Genotype 1a [facility] Comment:The method used in t his test is RT-PCR and reversehybridization (Line Probe) of the 5' UTR and coreregion of the HCV genome.The analytical performance characteristics of thisassay have been determined by [facility], [place], [place]. The modificationshave not been cleared or approved by the FDA. Thisassay has been validated pursuant to the CLIAregulations and is used for clinical purposes.For additional information, please refer tohttp://education.BlockTrail/faq/HCVGenotyping(This link is being provided for informational/educational purposes only.)THIS TEST WAS PERFORMED AT:[facility] [id number] [place] [address]FTYUYBIJAMES CANAS MD,PHD 01/09/2025 11:0 7 AM EST 01/09/2025 2:15 PM EST Maribel Lomax MD LAB BLOOD ORDERABLES Final Resul t Performing Organization Address [facility] Co de Phone Number [facility] [address] [place] [phone] * HIV-1/2 Antigen and Antibodies, Fourth Generation, with Reflexes (01/09/2025 11:07 AM EST) Pathologist [facility] HIV AB/AG Nonreactive Nonreactive [facility] Comment:HIV-1 p24 Ag and/or HIV-1/HIV-2 Ab not detected.A test result that is nonreactive does not exclude thepossibility of exposure to or infection with HIV-1 and/orHIV-2. Nonreactive results in this assay for individualswith prior exposure to HIV-1 and/or HIV-2 may be due toantigen and antibody levels that are below the limit ofdetection of this assay.The [employer] HIV Ag/Ab Combo assay result andsupplemental assay results should be interpreted inconjunction with the patient's clinical presentation,history and other laboratory results. If the results areinconsistent with clinical evidence, additional testing issuggested to confirm the result. 01/09/2025 11:0 7 AM EST 01/09/2025 2:15 PM EST Maribel Lomax MD LAB BLOOD ORDERABLES Final Resul t Performing Organization Address City/[facility]/ZIP Co de Phone Number [facility] [address] [place] [phone] * Hepatitis B Surface Antibody, Qualitative (01/09/2025 11:07 AM EST) ~Hepatitis B Surface Antibody REACTIVE Nonreactive [facility] Comment:REACTIVE: > 11.99 mI U/mL 01/09/2025 11:0 7 AM EST 01/09/2025 2:15 PM EST us Maribel Lomax MD LAB BLOOD ORDERABLES Final Resul t Performing Organization Address [facility] Co de Phone Number [facility] [address] [place] [phone] * (ABNORMAL) Prothrombin Time-INR (01/09/2025 11:07 AM EST) Prothrombin Time 10.4(L) 10.9 - 12.4 SEC [facility] INTERNATIONAL NORM RATIO 0.9 0.9 - 1.1 [facility] Comment:INTERNATIONAL NORMAL IZED RATIO (INR) REFERENCE RANGES Reference RangeFor patients not on anticoagulant therapy: 0.9 - 1.1INR ranges for oral anticoagulanttherapy:For prevention and treatment of venous thrombosis and pulmonary embolism: 2.0 - 3.0For acute myocardial infarction with aspirin therapy: 2.0 - 3.0For acute myocardial infarction without aspirin therapy: 3.0 - 4.0For patients with mechanical prosthetic heart valves: 2.5 - 3.5 01/09/2025 11:0 7 AM EST 01/09/2025 2:15 PM EST us Maribel Lomax MD LAB BLOOD ORDERABLES Final Resul t Performing Organization Address [facility] Co de Phone Number [facility] [address] [place] [phone] * US Abdomen Comp w elastography (12/15/2024 11:55 AM EST) Anatomical Region Laterality Modality Abdomen Ultrasound 12/15/2024 11:5 5 AM EST Narrative 12/15/2024 2:16 PM EST ? [facility] ?[address] ?[place] [address] ? Ultrasound Report ? Signed ? Patient: Kimberlee,Antoni ?MR#: [id number] ?? [id number] ? : 1975 ?Acct:[id number] ? Age/Sex: 49 / M ?ADM Date: 12/15/24 ? Loc: HO.US ? Attending Dr: Maribel Lomax MD ? Ordering Physician: Maribel Lomax MD ?? Date of Service: 12/15/24 ?? Procedure(s): US abdomen comp w elastography ?? Accession Number(s): [id number] ? cc: Maribel Lomax MD ? EXAMINATION: [...] ??Singh Tomlin MD ??12/15/2024 02:13 PM EST ? Dictated By: ?Singh Tomlin MD ? Signed By: ?<Electronically signed by Singh Tomlin MD in OV> ?12/15/24 1413 ? DD/ 1155 ? TD/TT: 12/15/24 1222 ? Bicycle Service Technician: ? Procedure Note [place], Image - 12/15/2024 [place] [address] Ultrasound Report Signed Patient: Mark Mohan#: [id number] : 1975Acct:[id number] Age/Sex: 49 / MADM Date: 12/15/24 Loc: HO.US Attending Dr: Maribel Lomax MD Ordering Physician: Maribel Lomax MD Date of Service: 12/15/24 Procedure(s): US abdomen comp w elastography Accession Number(s): [id number] cc: Maribel Lomax MD EXAMINATION: US ABDOMEN [...] by: Singh Tomlin MD 12/15/2024 02:13 PM [facility] Dictated By: Singh Tomlin MD Signed By: <Electronically signed by Singh Tomlin MD in OV> 12/15/24 1413 DD/ 1155 TD/TT: 12/15/24 1222 Bicycle Service Technician: us Maribel Lomax MD [facility] US PROCEDURES Final Result * (ABNORMAL) Lipid Panel, Standard (09/07/2024 10:02 AM EDT) Triglycerides 193(H) <150 mg/dL [facility] Comment:Desirable Triglyceri de: less than 150 mg/dLBorderline High Triglyceride 150-199 mg/dLHigh Triglyceride: 200-499 mg/dLVery High Triglyceride: greater than or equal to 5OO mg/dL Cholesterol 124 <200 mg/dL [facility] Comment:Desirable Cholestero l: less than 200 mg/dLBorderline High Cholesterol: 200-239 mg/dLHigh Cholesterol: greater than 239 mg/dL LDL Cholesterol Calculated 54 <100 mg/dL [facility] Comment:Desirable LDL: less than 100 mg/dLNear Optimal/Above Optimal LDL: 110- 129 mg/dLBorderline High LDL: 130-159 mg/dLHigh LDL: 160-189 mg/dLVery High LDL: greater than or equal to 190 mg/dL HDL Cholesterol 32(L) >40 mg/dL [facility] Comment:Desirable HDL: great er than 40 mg/dL Note: This HDL assay may give artificially low results in patients with liver disease. Blood Venous blood specimen / Unknown 09/07/2024 10:02 AM EDT 09/07/2024 2:21 PM EDT us Zhanna Valerio MD LAB BLOOD ORDERABLES Final Re sult [facility] [address] [place] [phone] [phone] from Last 3 Months or Most Recently Relevant to Health Maintenance Insurance [facility] Member Subscriber Plan / Payer (Ef fective 2020-Present) Name:Antoni Mohan Relation to Subscriber:Self Name:Antoni Mohan Payer ID:Not on file Group ID:[id number] Type:Not on file Address: [address] [facility] [place] [address] Care Teams Customer Marketing Manager Relationship Specialty Start Date End Date Maribel Lomax MD [address] [place] [phone] PCP - General Family Medicine 08/22/13
[2025-02-24 19:03] LABS: FIB-ALT 65 U/L (9-46); FIB-Alpha-2-Macroglobulin 217 mg/dL (106-279); FIB-Apolipoprotein A1 147 mg/dL (94-176); FIB-GGT 105 U/L (3-95); FIB-Haptoglobin 110 mg/dL (43-212); FIB-Total Bilirubin 0.6 mg/dL (0.2-1.2); Liver Fibrosis Score 0.43; Liver Fibrosis Stage F1-F2; Nec Inflam Act Grade A1-A2; Nec Inflam Act Score 0.44; Reference ID 5432432
== END 2025-02-19 12:35 | disposition home or self-care (01) ==
LOC: HO.CHCLDS 12:34
PROVIDERS: Visit Provider Student in an Organized Health Care Education/Training Program
DX: B18.2 Chronic viral hepatitis C (principal)
CPT/HCPCS: 36415; 81596

== ENCOUNTER 2025-03-12 10:41 | Outpatient (REF) | payer OTHER, SELFPAY ==
--- OUTSIDE RECORDS SUMMARY | 2025-03-12 12:38 | XMS_ITS | Encounter Summary ---
Author Organization [employer] Address [address] [facility] 7t [place] [address] Care Team Providers Care Bias Cutting Machine Operator Vertical Name Role Phone Maribel Lomax MD Primary Care Provider [phone] Encounter Details Date Type Department Care Team (Late st Contact Info) Description 03/06/2025 Orders Only [facility] PEDS [address] [place], [place] [phone] Maribel Lomax MD [address] [place], [place] [phone] Social History Tobacco Use Types Packs/Day Years Used Date Smoking Tobacco: Former Cigarettes 0.3 35.3 S tarted: 11/15/1989 Passive Smoke Exposure: Current Smokeless Tobacco: Never Depression Answer Date Recorded Patient Health Questionnaire-9 [...] as of this encounter Plan of Treatment Upcoming Encounters Date Type Department Care Team ([facility] st Contact Info) Description 06/06/2025 10:45 AM EDT Office Visit [facility]EDS [address] [place] [address] Maribel Lomax MD [address] [place] [address] documented as of this encounter Visit Diagnoses Not on filedocumented in this encounter Additional Health Concerns Assessment Noted Time PHQ-9 Depression Total Score: 0 09/07/20 9:32 AM EDT documented as of this encounter Care Teams Bias Cutting Machine Operator Vertical Relationship Specialty Start Date End Date Maribel Lomax MD [address] [place] [phone] PCP - General Family Medicine 08/22/13 documented as of this encounter
--- OUTSIDE RECORDS SUMMARY | 2025-03-12 12:38 | XMS_ITS | Encounter Summary ---
Author Organization [employer] Address [address] [facility] [address] [place] [address] Care Team Providers Care Gristmiller Name Role Phone Maribel Lomax MD Primary Care Provider [phone] Encounter Details Date Type Department Care Team (Latest Contact Info) Description 03/08/2025 Travel Social History Tobacco Use Types Packs/Day Years [...] Upcoming Encounters Date Type Department Care Team (Late st Contact Info) Description 06/06/2025 10:45 AM EDT Office Visit [facility] & PEDS [address] [place] [address] Maribel Lomax MD [address] [place] [address] documented as of this encounter Visit Diagnoses Not on filedocumented in this encounter Additional Health Concerns Assessment Noted Time PHQ-9 Depression Total Score: 0 09/07/20 24 9:32 AM EDT documented as of this encounter Care Teams Gristmiller Relationship Specialty Start Date End Date Maribel Lomax MD [address] [place] [phone] PCP - General Family Medicine 08/22/13 documented as of this encounter
--- OUTSIDE RECORDS SUMMARY | 2025-03-12 12:38 | XMS_ITS | Clinical Summary ---
Author Organization [employer] Address [address] [facility] [address] [place] [address] Care Team Providers Care Medical Examiner Name Role Phone Maribel Lomax MD Primary Care Provider [phone] Allergies Active Allergy Reactions Criticality Noted Date Comments Aspirin Anaphylaxis High 12/21/2013 Codeine Rash Low 12/21/2013 Medications * This document contains information received from the source organization and may not represent a complete record from that organization. gabapentin (Neurontin) 300 MG capsule TAKE 1 CAPSULE BY MOUTH AT BEDTIME 30 capsule 1 12/13/2024 Active albuterol 108 (90 Base) MCG/ACT inhaler Inhale 2 puffs every 4 (four) hours if needed. 08/08/2024 Active methadone (Dolophine) 10 MG/5ML solution Take 35 mg by mouth Once per day. 08/17/2022 Active sofosbuvir-velp atasvir (Epclusa) 400-100 MG tablet Take 1 tablet by mouth Once per day. 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 Chronic neck pain 10/21/2015 Encounters Date Type Department Care Team Description 03/08/2025 10:40 AM EDT Telemedicine [facility] [address] [place] [address] Maribel Lomax MD Hepatomegaly (Primary Dx); Screening for colon cancer 03/08/2025 Travel 03/06/2025 Orders Only [facility] [address] [place] [address] Maribel Lomax MD 02/20/2025 Telephone [facility] [address] [place] [address] Lacey Stevens RN 02/20/2025 Telephone [facility] [place] [address] Lacey Stevens, SOREN Prior Auth Prescription 02/19/2025 Orders Only [facility] [address] [place] [address] Maribel Lomax MD 02/13/2025 Telephone [facility] [place] [place] [address] Maribel Lomax MD Referral 02/05/2025 Orders Only [facility] [place] [address] Lacey Stevens, SOREN Hep C w/o coma, chronic (CMS/HCC) 01/29/2025 Telephone [facility] [place] [address] Lacey Stevens RN 01/22/2025 3:30 PM EDT Office Visit [facility] [place] [address] Radha Prajapati MD Chronic hepatitis C without hepatic coma (CMS/HCC) (Primary Dx); Encounter for immunization 01/22/2025 Travel 01/18/2025 1:00 PM EST Telemedicine [facility] [place] [address] Lacey Stevens RN Hep C w/o coma, chronic (CMS/HCC) [B18.2] 01/18/2025 Telephone [facility] [place] [address] Lacey Stevens, SOREN 01/18/2025 Travel 01/17/2025 Telephone [facility] [place] [address] Lacey Stevens, SOREN 01/09/2025 Orders Only [facility] [address] [facility] [place] [address] Maribel Lomax MD 01/04/2025 Telephone [facility] [place] [place] [address] Lacey Stevens RN 12/25/2024 Telephone [facility] [address] [place] [address] Lacey Stevens, RN Results 12/20/2024 Orders Only [facility] [address] [place] [address] Maribel Lomax MD Choledocholithiasis (Primary Dx) 12/19/2024 Telephone [facility] [address] [place], [place] [phone] Kennedi Sheridan, SOREN Results 12/15/2024 Orders Only [facility] [address] [place] [address] Maribel Lomax MD from Last 3 Months Immunizations Name Administration [...] is your housing situation today? I have mauriecroberto craig 09/07/[address] you [...] 09/07/2024 9:29 AM EDT Plan of Treatment Upcoming Encounters Date Type Department Care Team (Late st Contact Info) Description 06/06/2025 10:45 AM EDT Office Visit [facility] [address] [place] [address] Maribel Lomax MD [address] [place] [address] Health Maintenance Due Date Last Done Comments CT Colonography 1975 Colonoscopy 1975 FIT 1975 FOBT 1975 Sigmoidoscopy 1975 [...] Screening 09/07/2025 09/07/2024 Tobacco Screening 01/22/2026 01/22/2025 Colorectal Cancer Screening 05/11/2026 FIT DNA/Cologuard 05/11/2026 05/11/2023 DTaP/Tdap/Td Vaccines (3 - T d or [...] Procedure Name Priority Date/Time Associated Diagnosis Comments AMB REFERRAL TO GASTROENTEROLOGY STAT 03/02/2025 Choledocholithiasi s LIVER FIBROSIS, FIBROTEST ACTITEST PANEL Routine 02/19/2025 12:35 PM EDT HEPATITIS C VIRAL RNA GENOTYPE, LIPA Routine [...] Recently Relevant to Health Maintenance Results * Referral to Gastroenterology (03/02/2025) us Maribel Lomax MD OUTPATIENT REFERRAL ORDERABLES F inal Result * (ABNORMAL) Liver Fibrosis (HCV), FibroTest-ActiTest Panel (02/19/2025 12:35 PM EDT) Liver Fibrosis Score 0.43 [facility] Liver Fibrosis Stage F1-F2 [facility] Liver Fibrosis Interpretation SEE NOTE [facility] Comment:minimal fibrosisFibr o Test Score (f) Metavir Score f>=0 and f<=0.21 : F0 (no fibrosis)f>0.21 and f<=0.27 : F0-F1 (no fibrosis)f>0.27 and f<=0.31 : F1 (minimal fibrosis)f>0.31 and f<=0.48 : F1-F2 (minimal fibrosis)f>0.48 and f<=0.58 : F2 (moderate fibrosis)f>0.58 and f<=0.72 : F3 (advanced fibrosis)f>0.72 and f<=0.74 : F3-F4 (advanced fibrosis)f>0.74 and f<=1.00 : F4 (severe fibrosis) Nec Inflam Act Score 0.44 [facility] Nec Inflam Act Grade A1-A2 [facility] Nec Inflam Act Interpretation SEE NOTE [facility] Comment:minimal activityActi Test Score (a) Metavir Score a>=0 and a<=0.17 : A0 (no activity)a>0.17 and a<=0.29 : A0-A1 (no activity)a>0.29 and a<=0.36 : A1 (minimal activity)a>0.36 and a<=0.52 : A1-A2 (minimal activity)a>0.52 and a<=0.60 : A2 (significant activity)a>0.60 and a<=0.62 : A2-A3 (significant activity)a>0.62 and a<=1.00 : A3 (severe activity) RDS-Axffg-2-Macroglo bulin 217 106 - 279 mg/dL [facility] FIB-Haptoglobin 110 43 - 212 mg/dL [facility] FIB-Apolipoprotein A1 147 94 - 176 mg/dL [facility] FIB-Total Bilirubin 0.6 0.2 - 1.2 mg/dL [facility] FIB-GGT 105(A) 3 - 95 U/L [facility] FIB-ALT 65(A) 9 - 46 U/L [facility] Reference ID [id number] [facility] Footnote SEE NOTE [facility] Comment: The reliability of results is dependent on compliance withthe preanalytical and analytical conditions recommended byBioPredictive. The tests have to be deferred for: acutehemolysis, acute hepatitis, acute inflammation, extrahepatic cholestasis. The advice of a specialist should besought for interpretation in chronic hemolysis and Gilbert'ssyndrome. The test interpretation is not validated in livertransplant patients. Isolated extreme values of one of thecomponents should lead to caution in interpreting theresults. In case of discordance between a biopsy result amaris test, it is recommended to seek the advice of aspecialist. The causes of these discordances could be due toa flaw of the test or to a flaw in the biopsy: i.e. a liverbiopsy has a 33% variability rate for one fibrosis stage.FibroTest is interpretable for chronic hepatitis B and C,alcoholic and non alcoholic steatosis. ActiTest isinterpretable for chronic hepatitis B and C.The performance characteristics have been determined by[employer]AVE [facility]. Ithas not been cleared or approved by the U.S. Food and DrugAdministration. Performance characteristics refer to theanalytical performance of the test.efectivox, [employer], the associated logo, [employer] and all associated [employer] crenshaw are theregistered trademarks of [employer]. All third partymarks - (R) and (TM) - are the property of their respectiveowners. (C) [id number] [employer]. Allrights reserved.THIS TEST WAS PERFORMED AT:[employer] [id number] [place], [place] ??[id number] STEINER MD,PHD,TRAY 02/19/2025 12:3 5 PM EDT 02/19/2025 1:56 PM EDT Maribel Lomax MD LAB BLOOD ORDERABLES Final Resul t Performing Organization Address City/State/[facility] Co de Phone Number [facility] [address] [place] [phone] * Creatinine, Serum (01/09/2025 11:07 AM EST) Creatinine, Serum 0.96 0.5 - 1.4 mg/dL [facility] Estimated Glomerular Filt Rate >60 [facility] Comment:Chronic Kidney Disea se: Estimated GFR < 60 mL/min/1.46e9Kqdrgn Kidney Disease: Estimated GFR < 15 mL/min/1.73m2 01/09/2025 11:0 7 AM EST 01/09/2025 2:15 PM EST Maribel Lomax MD LAB BLOOD ORDERABLES Final Resul t [facility] [address] [place], [place] [phone] * (ABNORMAL) CBC auto differential (01/09/2025 11:07 AM EST) White Blood Count 4.8 4.8 - 10.8 X10*3/uL [facility] Red Blood Count 4.65 4.60 - 5.80 X10*6/uL [facility] Hemoglobin 13.8(L) 14.0 - 18.0 g/dl [facility] Hematocrit 40.2(L) 42.0 - 52.0 % [facility] Mean Corpuscular Volume 86.5 80.0 - 98.0 fL [facility] Mean Corpuscular Hemoglobin 29.7 27.0 - 33.0 pg [facility] Mean Corpuscular HGB Conc 34.3 31.0 - 36.0 g/dl [facility] Red Cell Distribution Width 12.1 11.0 - 16.0 % [facility] Platelet Count 198 160 - 400 X10*3/uL [facility] Mean Platelet Volume 10.4 9.4 - 12.4 fL [facility] Neutrophils Percent Auto 54.8 45 - 73 % [facility] Imm Gran Pct Auto 0.2 0.0 - 0.4 % [facility] Lymphocytes Percent Auto 34.0 20 - 40 % [facility] Monocytes Percent Auto 7.5 2 - 11 % [facility] Eosinophils Percent Auto 3.1 0 - 4 % [facility] Basophils Percent Auto 0.4 0 - 2 % [facility] NRBC Pct Auto 0.0 0.0 - 0.2 /100WBC [facility] Neutrophils Absolute Auto 2.6 2.0 - 8.3 x10*3/uL [facility] Imm Gran Abs Auto 0.01 0.00 - 0.03 X10*3/uL [facility] Lymphocytes Absolute Auto 1.6 1.2 - 4.9 X10*3/uL [facility] Monocytes Absolute Auto 0.4 0.1 - 1.2 X10*3/uL [facility] Eosinophils Absolute Auto 0.2 0.0 - 0.4 X10*3/uL [facility] Basophils Absolute Auto 0.0 0.0 - 0.2 X10*3/uL [facility] NRBC Abs Auto 0.000 0.0 - 0.012 X10*3/uL [facility] 01/09/2025 11:0 7 AM EST 01/09/2025 2:15 PM EST us Maribel Lomax MD LAB BLOOD ORDERABLES Final Resul t Performing Organization Address [facility] Co de Phone Number [facility] [address] [place] [phone] * Hepatitis A Antibody, Total (01/09/2025 11:07 AM EST) Hepatitis A Antibody IgG Nonreactive Nonreactive [facility] 01/09/2025 11:0 7 AM EST 01/09/2025 2:15 PM EST us Maribel Lomax MD LAB BLOOD ORDERABLES Final Resul t Performing Organization Address [facility] Co de Phone Number [facility] [address] [place] [phone] * Hepatitis B surface antigen, EIA (01/09/2025 11:07 AM EST) Hepatitis B Surface Ag Negative Negative [facility] 01/09/2025 11:0 7 AM EST 01/09/2025 2:15 PM EST us Maribel Lomax MD LAB BLOOD ORDERABLES Final Resul t Performing Organization Address [facility] Co de Phone Number [facility] [address] [place] [phone] * Hepatitis B Core Antibody, Total (01/09/2025 11:07 AM EST) Hepatitis B Core Antibody Nonreactive Nonreactive [facility] 01/09/2025 11:0 7 AM EST 01/09/2025 2:15 PM EST Maribel Lomax MD LAB BLOOD ORDERABLES Final Resul t Performing Organization Address City/[facility] Co de Phone Number [facility] [address] [place] [phone] * Hepatitis C Viral RNA, Genotype, LiPA (01/09/2025 11:07 AM EST) Hepatitis C Genotype 1a [facility] Comment:The method used in t his test is RT-PCR and reversehybridization (Line Probe) of the 5' UTR and coreregion of the HCV genome.The analytical performance characteristics of thisassay have been determined by [facility] [place]. The modificationshave not been cleared or approved by the FDA. Thisassay has been validated pursuant to the CLIAregulations and is used for clinical purposes.For additional information, please refer tohttp://education.Endeca/faq/HCVGenotyping(This link is being provided for informational/educational purposes only.)THIS TEST WAS PERFORMED AT:[employer] [place] [address]SMONQWOJAMES CANAS MD,PHD 01/09/2025 11:0 7 AM EST 01/09/2025 2:15 PM EST Maribel Lomax MD LAB BLOOD ORDERABLES Final Resul t Performing Organization Address City/[facility]/ZIP Co de Phone Number [facility] [address] [place] [phone] * HIV-1/2 Antigen and Antibodies, Fourth Generation, with Reflexes (01/09/2025 11:07 AM EST) HIV AB/AG Nonreactive Nonreactive [facility] Comment:HIV-1 p24 Ag and/or HIV-1/HIV-2 Ab not detected.A test result that is nonreactive does not exclude thepossibility of exposure to or infection with HIV-1 and/orHIV-2. Nonreactive results in this assay for individualswith prior exposure to HIV-1 and/or HIV-2 may be due toantigen and antibody levels that are below the limit ofdetection of this assay.The [employer] HIV Ag/Ab Combo assay result andsupplemental assay results should be interpreted inconjunction with the patient's clinical presentation,history and other laboratory results. If the results areinconsistent with clinical evidence, additional testing issuggested to confirm the result. 01/09/2025 11:0 7 AM EST 01/09/2025 2:15 PM EST Maribel Lomax MD LAB BLOOD ORDERABLES Final Resul t Performing Organization Address [facility] Co de Phone Number [facility] [address] [place] [phone] * Hepatitis B Surface Antibody, Qualitative (01/09/2025 11:07 AM EST) ~Hepatitis B Surface Antibody REACTIVE Nonreactive [facility] Comment:REACTIVE: > 11.99 mI U/mL 01/09/2025 11:0 7 AM EST 01/09/2025 2:15 PM EST Maribel Lomax MD LAB BLOOD ORDERABLES Final Resul t Performing Organization Address [facility] Co de Phone Number [facility] [address] [place] [phone] * (ABNORMAL) Prothrombin Time-INR (01/09/2025 11:07 AM EST) Prothrombin Time 10.4(L) 10.9 - 12.4 SEC [facility] INTERNATIONAL NORM RATIO 0.9 0.9 - 1.1 [facility] Comment:INTERNATIONAL NORMAL IZED RATIO (INR) REFERENCE [...] MD LAB BLOOD ORDERABLES Final Resul t [facility] [address] [place] [phone] * US Abdomen Comp w elastography (12/15/2024 11:55 AM EST) Anatomical Region Laterality Modality Abdomen Ultrasound 12/15/2024 11:5 5 AM EST Narrative 12/15/2024 2:16 PM EST ? [facility] ?[address] ?[place] [address] ? Ultrasound Report ? Signed ? Patient: Antoni Mohan ?MR#: [id number] ?? [id number] ? : 1975 ?Acct:[id number] ? Age/Sex: 49 / M ?ADM Date: 12/15/24 ? Loc: HO.US ? Attending Dr: Maribel Lomax MD ? Ordering Physician: Maribel Lomax MD ?? Date of Service: 12/15/24 ?? Procedure(s): US abdomen comp w elastography ?? Accession Number(s): [id number] ? cc: Maribel Lomax MD ? EXAMINATION: [...] DD/ 1155 ? TD/TT: 12/15/24 1222 ? Livestock Exhibitor: ? Procedure Note [place], Image - 12/15/[address] [address] Ultrasound Report Signed Patient: Mark Mohan#: [id number] : 1975Acct:[id number] Age/Sex: 49 / MADM Date: 12/15/24 Loc: HO.US Attending Dr: Maribel Lomax MD Ordering Physician: Maribel Lomax MD Date of Service: 12/15/24 Procedure(s): US abdomen comp w elastography Accession Number(s): [id number] cc: Maribel Lomax MD EXAMINATION: US ABDOMEN [...] by: Singh Tomlin MD 12/15/2024 02:13 PM [facility] Dictated By: Singh Tomlin MD Signed By: <Electronically signed by Singh Tomlin MD in OV> 12/15/24 1413 DD/ 1155 TD/TT: 12/15/24 1222 [employer]estock [employer]itor: us Maribel Lomax MD IMG US PROCEDURES Final Result * (ABNORMAL) Lipid Panel, Standard (09/07/2024 10:02 AM EDT) Triglycerides 193(H) <150 mg/dL [facility] Comment:Desirable Triglyceri de: less than 150 mg/dLBorderline High Triglyceride 150-199 mg/dLHigh Triglyceride: 200-499 mg/dLVery High Triglyceride: greater than or equal to 5OO mg/dL Cholesterol 124 <200 mg/dL [facility] Comment:Desirable Cholestero l: less than 200 mg/dLBorderline High Cholesterol: 200-239 mg/dLHigh Cholesterol: greater than 239 mg/dL LDL Cholesterol Calculated 54 <100 mg/dL [facility] Comment:Desirable LDL: less than 100 mg/dLNear Optimal/Above Optimal LDL: 110- 129 mg/dLBorderline High LDL: 130-159 mg/dLHigh LDL: 160-189 mg/dLVery High LDL: greater than or equal to 190 mg/dL HDL Cholesterol 32(L) >40 mg/dL [facility] Comment:Desirable HDL: great er than 40 mg/dL Note: This HDL assay may give artificially low results in patients with liver disease. Blood Venous blood specimen / Unknown 09/07/2024 10:02 AM EDT 09/07/2024 2:21 PM EDT us Zhanna Valerio MD LAB BLOOD ORDERABLES Final Re sult [facility] [address] [place] [phone] from Last 3 Months or Most Recently Relevant to Health Maintenance Insurance [id number] ONE CARE < 65 [facility] ONE CARE < 65 Care Teams Medical Examiner Relationship Specialty Start Date End Date Maribel Lomax MD [address] [place] [phone] PCP - General Family Medicine 08/22/13
--- OUTSIDE RECORDS SUMMARY | 2025-03-12 12:38 | XMS_ITS | Encounter Summary ---
Author Organization [employer] Address [address] [facility] [address] [place] [address] Care Team Providers Care Corporate Meeting Planner Name Role Phone Maribel Lomax MD Primary Care Provider [phone] Encounter Details Date Type Department Care Team (Late st Contact Info) Description 03/08/2025 10:40 AM EDT Telemedicine [facility] [address] [place], [place] [phone] Maribel Lomax MD [address] [place] [address] Hepatomegaly (Primary Dx); Screening for colon cancer Social History Tobacco Use Types Packs/Day Years [...] AM EDT documented as of this encounter Progress Notes * Maribel Lomax MD - 03/08/2025 10:40 AM EDT Subjective Patient ID: Antoni Mohan is a 49 y.o. male who presents for No chief complaint on file.. HPI Review of Systems Constitutional: Negative. Respiratory: Negative. Cardiovascular: Negative. Gastrointestinal: Negative. Genitourinary: Negative. Objective Physical Exam Constitutional: Appearance: Normal appearance. Cardiovascular: Rate and Rhythm: Normal rate and regular rhythm. Pulmonary: Effort: Pulmonary effort is normal. Breath sounds: Normal breath sounds. Neurological: General: No focal deficit present. Mental Status: He is alert. Psychiatric: Mood and Affect: Mood normal. Behavior: Behavior normal. Assessment/Plan Diagnoses and all orders for this visit: Hepatomegaly Comments: Pt awaiting to see GI CT to be faxed over Labs ordered today Strongly advised low fat diet Screening for colon cancer - Cologuard?? colon cancer screening documented in this encounter Plan of Treatment Upcoming Encounters Date Type Department Care Team (Late st Contact Info) Description 06/06/2025 10:45 AM EDT Office Visit [facility] [address] [place] [address] Maribel Lomax MD [address] [place] [address] Scheduled Orders Name Type Priority Associated Diagnoses Orde r Schedule Cologuard?? colon cancer screening Lab Routine Screening for colon cancer Ordered: 03/08/2025 documented as of this encounter Visit Diagnoses Diagnosis Hepatomegaly- Primary Screening for colon cancer Special screening for malignant neoplasms, colon documented in this encounter Additional Health Concerns Assessment Noted Time PHQ-9 Depression Total Score: 0 09/07/20 9:32 AM EDT documented as of this encounter Care Teams Corporate Meeting Planner Relationship Specialty Start Date End Date Maribel Lomax MD [address] [place] [phone] PCP - General Family Medicine 08/22/13 documented as of this encounter
[2025-03-19 12:58] LABS: FIB-ALT 54 U/L (9-46); FIB-Alpha-2-Macroglobulin 236 mg/dL (106-279); FIB-Apolipoprotein A1 134 mg/dL (94-176); FIB-GGT 83 U/L (3-95); FIB-Haptoglobin 139 mg/dL (43-212); FIB-Total Bilirubin 0.4 mg/dL (0.2-1.2); Liver Fibrosis Score 0.38; Liver Fibrosis Stage F1-F2; Nec Inflam Act Grade A1; Nec Inflam Act Score 0.34; Reference ID 5468600
== END 2025-03-12 10:42 | disposition home or self-care (01) ==
LOC: HO.CHCLDS 10:41
PROVIDERS: Visit Provider Student in an Organized Health Care Education/Training Program
DX: B18.2 Chronic viral hepatitis C (principal)
CPT/HCPCS: 36415; 81596

== ENCOUNTER 2025-07-25 13:11 | Outpatient (REF) | payer OTHER, SELFPAY ==
--- OUTSIDE RECORDS SUMMARY | 2025-07-25 16:11 | XMS_ITS | Clinical Summary ---
Author Organization [employer] Address [address] [facility] [address] [place] [address] Care Team Providers Care Charging Manipulator Name Role Phone Maribel Lomax MD Primary Care Provider [phone] Allergies Active Allergy Reactions Criticality Noted Date [...] by mouth Once per day. 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 Chronic neck pain 10/21/2015 Encounters Date Type Department Care Team Description 07/17/2025 Orders Only [facility] [address] [place] [address] Lacey Stevens, SOREN Hep C w/o coma, chronic (CMS/HCC) (Primary Dx) 07/10/2025 10:45 AM EDT Office Visit [facility] [address] [place] [address] Maribel Lomax MD Chronic neck pain (Primary Dx); Methadone use; Plantar wart of left foot; Class 2 obesity without serious comorbidity with body mass index (BMI) of 39.0 to 39.9 in adult, unspecified obesity type 07/10/2025 Travel 07/09/2025 Telephone [facility] [address] [place] [address] Maribel Lomax MD chart prep 06/06/2025 Telephone [facility] [address] [facility] [place] [id number] Maribel Lomax MD No Show 06/06/2025 Telephone [facility] [address] [facility] [place] [address] Lacey Stevens, SOREN 04/24/2025 Telephone [facility] [address] [facility] [place] [id number] Maribel Lomax MD from Last 3 Months Immunizations Immunization Administration Dates Next Due Hep A, Adult 01/22/2025 Td (adult), 5 Lf tetanus tox oid, preservative free, adsorbed 05/19/2017 Tdap 12/02/2012 Social History Tobacco Use Types Packs/Day Years Used Date Smoking Tobacco: Former Cigarettes 0.3 35.7 S tarted: 11/15/1989 Passive Smoke Exposure: Current [...] Sign Reading Time Taken Comments Blood Pressure 138/76 07/10/2025 10:47 AM EDT Pulse 68 07/10/2025 10:47 AM EDT Temperature 36.4 C (97.6 F) 07/10/2025 10:47 AM EDT Respiratory Rate 20 07/10/2025 10:47 AM EDT Oxygen Saturation 95% 09/07/2024 9:29 AM EDT Inhaled Oxygen Concentration - - Weight 90.7 kg (200 lb) 07/10/2025 10:47 AM EDT Height 169.5 cm (5' 6.75 ) 07/10/2025 10:47 AM E DT Body Mass Index 31.56 07/10/2025 10:47 AM EDT Plan of Treatment Health Maintenance Due Date Last Done Comments CT Colonography 1973 Colonoscopy 1973 FIT 1973 Sigmoidoscopy 1973 Disability Screening 1973 Family Planning (PISQ) 1988 Hepatitis B Vaccines (1 of 3 - 19+ 3-dose series) 1992 Pneumococcal Vaccine: 50+ Years (1 of 2 - PCV) 1992 Zoster Vaccines (1 of 2) 2023 FOBT 05/11/2024 05/11/2023 COVID-19 Vaccine (1 - 2023-2 5 season) 2025 Influenza Vaccine (#1) 2025 Hepatitis A Vaccines (2 of 2 - [...] patient's age to complete this topic Meningococcal B Vaccine Aged Out No l onger eligible based on patient's age to complete [...] Procedure Name Priority Date/Time Associated Diagnosis Comments HIV 1/2 ANTIGEN/ANTIBODY, FOURTH GENERATION W/RFL Routine 01/09/2025 11:07 AM EST LIPID PANEL, STANDARD Routine 09/07/2024 10:02 AM EDT Routine screening for STI (sexually transmitted infection) Overweight Chronic neck pain from Last 3 Months or Most Recently Relevant to Health Maintenance Results * HIV-1/2 Antigen and Antibodies, Fourth Generation, with Reflexes (01/09/2025 11:07 AM EST) HIV AB/AG Nonreactive Nonreactive [facility] Comment:HIV-1 p24 Ag and/or HIV-1/HIV-2 Ab not detected.A test result that is nonreactive does not exclude thepossibility of exposure to or infection with HIV-1 and/orHIV-2. Nonreactive results in this assay for individualswith prior exposure to HIV-1 and/or HIV-2 may be due toantigen and antibody levels that are below the limit ofdetection of this assay.The [employer] Al[employer] HIV Ag/Ab Combo assay result andsupplemental assay results should be interpreted inconjunction with the patient's clinical presentation,history and other laboratory results. If the results areinconsistent with clinical evidence, additional testing issuggested to confirm the result. 01/09/2025 11:0 7 AM EST 01/09/2025 2:15 PM EST us Maribel Lomax MD LAB BLOOD ORDERABLES Final Resul t [facility] [address] [place] [address] [phone] * (ABNORMAL) Lipid Panel, Standard (09/07/2024 10:02 AM EDT) Triglycerides 193(H) <150 mg/dL [facility] Comment:Desirable Triglyceri de: less than 150 mg/dLBorderline High Triglyceride 150-199 mg/dLHigh Triglyceride: 200-499 mg/dLVery High Triglyceride: greater than or equal to 5OO mg/dL Cholesterol 124 <200 mg/dL [facility] Comment:Desirable Cholestero l: less than 200 mg/dLBorderline High Cholesterol: 200-239 mg/dLHigh Cholesterol: greater than 239 mg/dL LDL Cholesterol Calculated 54 <100 mg/dL [facility] Comment:Desirable LDL: less than 100 mg/dLNear Optimal/Above Optimal LDL: 110- 129 mg/dLBorderline High LDL: 130-159 mg/dLHigh LDL: 160-189 mg/dLVery High LDL: greater than or equal to 190 mg/dL HDL Cholesterol 32(L) >40 mg/dL [facility] Comment:Desirable HDL: great er than 40 mg/dL Note: This HDL assay may give artificially low results in patients with liver disease. Blood Venous blood specimen / Unknown 09/07/2024 10:02 AM EDT 09/07/2024 2:21 PM EDT us Zhanna Valerio MD LAB BLOOD ORDERABLES Final Re sult [facility] [address] [place] [address] [phone] from Last 3 Months or Most Recently Relevant to Health Maintenance Insurance [facility] < 65 [place] [employer] [id number] Care Teams Charging Manipulator Relationship Specialty Start Date End Date Maribel Lomax MD [address] [place] [phone] PCP - General Family Medicine 08/22/13
--- OUTSIDE RECORDS SUMMARY | 2025-07-25 16:11 | XMS_ITS | Encounter Summary ---
Author Organization [employer] Address [address] [facility] [address] [place] [address] Care Team Providers Care Supervisor Shipping Room Name Role Phone Maribel Lomax MD Primary Care Provider [phone] Encounter Details Date Type Department Care Team (Late st Contact Info) Description 03/06/2025 Orders Only [facility] [address] [place] [address] Maribel Lomax MD [address] [place] [address] Social History Tobacco Use Types Packs/Day Years [...] documented as of this encounter Care Teams Supervisor Shipping Room Relationship Specialty Start Date End Date Maribel Lomax MD [address] [place] [id number] PCP - General Family Medicine 08/22/13 documented as of this encounter
--- OUTSIDE RECORDS SUMMARY | 2025-07-25 16:11 | XMS_ITS | Encounter Summary ---
Author Organization [employer] Address [address] [facility] 7[address] [place] [address] Care Team Providers Care New Car Make Ready Mechanic Name Role Phone Maribel Lomax MD Primary Care Provider [phone] Encounter Details Date Type Department Care Team (Late st Contact Info) Description 06/06/2025 Telephone [facility] [address] [place], [place] [phone] Lacey Stevens, RN [address] [place] [address] Social History Tobacco Use Types Packs/Day Years [...] Telephone Encounter - Lacey Stevens RN - 07/24/2025 9:00 AM EDT RN called pt, states he hasn't had the time to step away from work to complete labs but will attempt to 07/25/25. RN will continue to f/u. RN called pt to remind, no answer, LVM for return call. Hep C REGINE/SVR Due 07/17/25, RN including Grecia DOTY, to help remind pt, RN will be out of office at this time. * Telephone Encounter - Lacey Stevens RN - 07/23/2025 9:14 AM EDT RN called pt to remind, no answer, LVM for return call. Hep C REGINE/SVR Due 07/17/25, RN including Grecia DOTY, to help remind pt, RN will be out of office at this time. * Telephone Encounter - Lacey Stevens RN - 06/06/2025 8:53 AM EDT Hep C REGINE/SVR Due 07/17/25, RN including Grecia DOTY, to help remind pt, RN will be out of office at this time. documented in this encounter Plan of Treatment Not on file documented as of this encounter Visit Diagnoses Not on filedocumented in this encounter Additional Health Concerns Assessment Noted Time PHQ-9 Depression Total Score: 0 09/07/20 24 9:32 AM EDT documented as of this encounter Care Teams New Car Make Ready Mechanic Relationship Specialty Start Date End Date Maribel Lomax MD [address] [place] [address] PCP - General Family Medicine 08/22/13 documented as of this encounter
[2025-07-26 08:58] LABS: ~HepC Num1 16.24 S/CO (0.00-0.79); ~Hepatitis C Antibody Reactive (Nonreactive)
[2025-07-29 15:08] LABS: HCV Log PCR <1.18 NOT DETECTED Log IU/mL (NOT DETECTED); HepC Viral Load <15 NOT DETECTED IU/mL (NOT DETECTED)
== END 2025-07-25 13:12 | disposition home or self-care (01) ==
LOC: HO.CHCLDS 13:11
PROVIDERS: Visit Provider Family Medicine
DX: B18.2 Chronic viral hepatitis C (principal)
CPT/HCPCS: 36415; 86803; 87522